=== PATIENT | female | born 1945 ===

== ENCOUNTER → 2016-07-18 | Outpatient (CLI) | payer OTHER ==
[~2016-07-18] MED LIST: ASPI325T45 PO; CITA10TA8 PO; LEVO88TA3 PO; LORA-741 PO; PRED1SUS OPR; PROP20TA67 PO; TAMO20TA47 PO
== END | disposition home or self-care (01) ==
LOC: C.PATHSPEC 13:41
PROVIDERS: ATTEND Dermatology
DX: L82.0 Inflamed seborrheic keratosis (principal)